=== PATIENT | male | born 1965 | race Caucasian/White ===

== ENCOUNTER 2019-08-15 09:07 | Emergency (ER) | payer MEDICAID, OTHER ==
[~2019-08-15] VITALS: Ht 175.3 cm; Wt 101.8 kg
[2019-08-15] MEDS ORDERED: ketorolac tromethamine 15mg/ml inj. IV ONE (09:35)
[2019-08-15] MEDS ORDERED: cloNIDine 0.1 mg tablet PO ONE (09:35)
--- NOTE | 2019-08-15 10:02 | NUR ---
BREAKING PRIMARY RN, LAB AND ANOTHER RN AT BEDSIDE, STARTING A LINE AND COLLECTING LABS
[2019-08-15 10:14] LABS: BASOPHILS # (AUTO) 0.1 X10'3 (0-0.2); BASOPHILS % (AUTO) 0.8 % (0-1); EOSINOPHILS # (AUTO) 0.2 X10'3 (0-0.9); EOSINOPHILS % (AUTO) 2.1 % (0-6); HEMATOCRIT 52.1 % (42.0-52.0); HEMOGLOBIN 17.3 g/dl (14.0-17.9); LYMPHOCYTES # (AUTO) 1.7 X10'3 (1.1-4.8); LYMPHOCYTES % (AUTO) 17.7 % (21-51); MEAN CORPUSCULAR HEMOGLOBIN 30.8 PG (27.0-31.0); MEAN CORPUSCULAR HGB CONC 33.3 g/dL (33.0-36.5); MEAN CORPUSCULAR VOLUME 92.7 FL (78-98); MEAN PLATELET VOLUME 8.3 FL (7.4-10.4); MONOCYTES # (AUTO) 1.3 X10'3 (0-0.9); MONOCYTES % (AUTO) 13.4 % (2-12); NEUTROPHILS # (AUTO) 6.3 X10'3 (1.8-7.7); PLATELET COUNT 209 X10'3 (140-440); RED BLOOD COUNT 5.62 X10'6 (4.70-6.10); RED CELL DISTRIBUTION WIDTH 15.2 % (11.5-14.5); WHITE BLOOD COUNT 9.5 X10'3 (4.5-11.0)
[2019-08-15] MEDS ORDERED: acetaminophen w/codeine (30MG) #3 tablet PO ONE (10:20)
[2019-08-15] MEDS ORDERED: normal saline 1000ML IV soln IVB ONE (10:20)
[2019-08-15 10:26] LABS: ALANINE AMINOTRANSFERASE 20 U/L (12-78); ALBUMIN 2.9 G/DL (3.4-5.0); ALBUMIN/GLOBULIN RATIO 0.6 (1.1-1.5); ALKALINE PHOSPHATASE 108 IU/L (46-116); ANION GAP 8 (8-16); ASPARTATE AMINO TRANSFERASE 27 U/L (10-37); BILIRUBIN,TOTAL 0.8 MG/DL (0.1-1.0); BLOOD UREA NITROGEN 11 MG/DL (7-18); BUN/CREATININE RATIO 8.2 (5.4-32.0); CALCIUM 8.7 MG/DL (8.5-10.1); CHLORIDE 107 MMOL/L (99-107); CREATININE 1.34 MG/DL (0.60-1.10); GLUCOSE 89 MG/DL (70-104); MAGNESIUM 1.6 MG/DL (1.5-2.4); POTASSIUM 3.5 MMOL/L (3.5-5.1); SODIUM 140 MMOL/L (135-145); TOTAL CARBON DIOXIDE 25.5 MMOL/L (24-32); TOTAL PROTEIN 7.6 G/DL (6.4-8.2); eGFR 67 ML/MIN
[2019-08-15] MEDS ORDERED: HYDROchlorothiazide 25mg tablet PO ONE (10:30)
[2019-08-15] MEDS ORDERED: CefTRIAXone/D5W-Rocephin 1gm 50 ML IV ONE (11:05)
[2019-08-15] MEDS ORDERED: azithromycin 250mg tablet PO ONE (11:05)
[2019-08-15] MEDS ORDERED: AZIT-63 PO (11:06)
[2019-08-15] MEDS ORDERED: IBUP-1984 PO (11:06)
[2019-08-15] MEDS ORDERED: ACET-3068 PO (11:06)
[2019-08-15 12:09] VITALS: BP 160/105
== END 2019-08-15 12:15 | disposition home or self-care (01) ==
LOC: ER 09:08
DX: I10 Essential (primary) hypertension (principal); J18.9 Pneumonia, unspecified organism; R60.0 Localized edema; Z87.891 Personal history of nicotine dependence; Z79.899 Other long term (current) drug therapy
CPT/HCPCS: 36415; 71046; 80053; 83735; 84484; 85025; 87502; 87503; 93005; 96365; 96375; 99285; J0696; J1885; J7030

== ENCOUNTER 2024-06-20 14:50 | Inpatient (IN) | payer MEDICAID ==
[2024-06-20] VITALS (7 sets, daily range): PULSE 68–82; RESP 16–20; O2SAT 95–100
[~2024-06-20] VITALS: Ht 175.3 cm; Wt 120.0 kg
[~2024-06-20 14:50] MED LIST: etomidate 2mg/ml inj. ONE
[2024-06-20] MEDS: ipratropium/albuterol 3ml nebule NEB ONE (16:37)
[2024-06-20 16:57] LABS: BASOPHILS % (AUTO) 0.4 % (0-1); EOSINOPHILS # (AUTO) 0.1 X10'3 (0-0.9); EOSINOPHILS % (AUTO) 0.9 % (0-6); LYMPHOCYTES # (AUTO) 0.6 X10'3 (1.1-4.8); LYMPHOCYTES % (AUTO) 5.6 % (21-51); MEAN PLATELET VOLUME 9.5 FL (7.4-10.4); MONOCYTES # (AUTO) 1.4 X10'3 (0-0.9); MONOCYTES % (AUTO) 12.4 % (2-12); NEUTROPHILS # (AUTO) 9.2 X10'3 (1.8-7.7); NEUTROPHILS % (AUTO) 80.7 % (42-75); PLATELET COUNT 119 X10'3 (140-440); WHITE BLOOD COUNT 11.5 X10'3 (4.5-11.0)
[2024-06-20 17:12] LABS: ALANINE AMINOTRANSFERASE 37 U/L (12-78); ALBUMIN 3.1 G/DL (3.4-5.0); ALBUMIN/GLOBULIN RATIO 0.6 (1.1-1.5); ALKALINE PHOSPHATASE 179 IU/L (46-116); ANION GAP 4 (8-16); ASPARTATE AMINO TRANSFERASE 29 U/L (10-37); BILIRUBIN,TOTAL 1.6 MG/DL (0.1-1.0); BLOOD UREA NITROGEN 60 MG/DL (7-18); BUN/CREATININE RATIO 23.3 (10.0-20.0); CALCIUM 8.6 MG/DL (8.5-10.1); CHLORIDE 98 MMOL/L (99-107); CREATININE 2.57 MG/DL (0.60-1.10); POTASSIUM 4.9 MMOL/L (3.5-5.1); SODIUM 138 MMOL/L (135-145); TOTAL CARBON DIOXIDE 36.1 MMOL/L (24-32); TOTAL PROTEIN 8.6 G/DL (6.4-8.2); eCRCL 31 ML/MIN; eGFR 26 ML/MIN
[2024-06-20 17:21] LABS: PRO BRAIN NATRIURETIC PEPTIDE 12237 PG/ML (0-125)
[2024-06-20 17:25] LABS: HEMOGLOBIN 13.5 g/dl (14.0-17.9); MEAN CORPUSCULAR HEMOGLOBIN 30.9 PG (27.0-31.0); MEAN CORPUSCULAR HGB CONC 32.1 g/dL (33.0-36.5); MEAN CORPUSCULAR VOLUME 96.3 FL (78-98); RED BLOOD COUNT 4.36 X10'6 (4.70-6.10); RED CELL DISTRIBUTION WIDTH 17.2 % (11.5-14.5)
[2024-06-20 17:39] LABS: GLUCOSE 101 MG/DL (70-104)
[2024-06-20] MEDS: furosemide 40mg/4ml inj IV ONE ×2 (17:50)
[2024-06-20] MEDS: cefTAZidime 1 GM/NS 100ML IVPB 100 ML IV STA (17:50)
[2024-06-20] MEDS: azithromycin/NS 500mg/250ml 250 ML IV ONE (17:51)
[2024-06-20 18:18] LABS: ANISOCYTOSIS 2+; PLATELET ESTIMATE DECREASED
[2024-06-20] MEDS: LidoCAINE 2% Topical Jelly 11mL syringe (UROJET) TOP ONE (18:20)
[2024-06-20 18:59] LABS: ABG BASE EXCESS 1.1 mmol/L (-2.0-3.0); ABG HCO3 32.9 mmol/L (21.0-28.0); ABG OXYGEN SATURATION 94.5 % (94.0-98.0); ABG PCO2 (T) 89.4 mmHg (35.0-48.0); ABG PO2 (T) 74.9 mmHg (83.0-108.0); ALLEN'S TEST Modified; FCOHb 0.8 % (0.5-1.5); FHHb 5.4 % (0.0-5.0); FLOW 5 L/min; FMetHb 0.2 % (0.0-1.5); FO2Hb 93.6 % (94.0-98.0); MODE NASAL CANNULA; PATIENT TEMPERATURE 36.2; TOTAL HEMOGLOBIN 14.9 G/dl (13.5-17.5)
[2024-06-20] MEDS: albuterol 2.5 MG/3 ML nebule CONTNEB PRN (19:14)
[2024-06-20 19:18] LABS: BILIRUBIN,URINE NEGATIVE (Neg); CLARITY,URINE CLEAR (Clear); COLOR,URINE YELLOW (Yellow); GLUCOSE, URINE NEGATIVE (Neg); KETONES,URINE NEGATIVE (Neg); LEUKOCYTE ESTERASE ,URINE NEGATIVE (Neg); NITRITES, URINE NEGATIVE (Neg); OCCULT BLOOD,URINE NEGATIVE (Neg); PH,URINE 5.5 (4.8-8.0); PROTEIN,URINE 30 mg/dl (Neg); UROBILINOGEN,URINE 0.2 E.U/dL (0.2-1.0)
[2024-06-20 19:23] LABS: UA COLLECTION TYPE URINAL
[2024-06-20 19:24] LABS: BACTERIA,URINE 1+ /HPF (Neg); HYALINE CASTS 0-3 /LPF (NEGATIVE); MUCUS STRANDS FEW /LPF (Neg); RBC,URINE 0-2 /HPF (0-2); SQUAMOUS EPITHELIAL CELL,UR FEW /LPF (FEW); WBC,URINE 0-4 /HPF (0-4)
[2024-06-20 19:47] LABS: URINE AMPHETAMINE SCREEN POSITIVE (Neg); URINE BARBITUATE SCREEN NEGATIVE (Neg); URINE BENZODIAZEPINES SCREEN NEGATIVE (Neg); URINE CANNABINOID SCREEN NEGATIVE (Neg); URINE COCAINE SCREEN NEGATIVE (Neg); URINE METHADONE SCREEN NEGATIVE (Neg); URINE OPIATE SCREEN NEGATIVE (Neg); URINE PHENCYCLIDINE SCREEN NEGATIVE (Neg)
[2024-06-20 21:05] LABS: ABG HCO3 36.5 mmol/L (21.0-28.0); ABG OXYGEN SATURATION 95.5 % (94.0-98.0); ABG PCO2 (T) 90.5 mmHg (35.0-48.0); ABG PH (T) 7.222 (7.350-7.450); ABG PO2 (T) 80.9 mmHg (83.0-108.0); ALLEN'S TEST POSITIVE; FCOHb 1.1 % (0.5-1.5); FHHb 4.4 % (0.0-5.0); FMetHb 0.2 % (0.0-1.5); FO2Hb 94.3 % (94.0-98.0); PATIENT TEMPERATURE 36.7; TOTAL HEMOGLOBIN 15.1 G/dl (13.5-17.5)
[2024-06-20] MEDS: succinylcholine 20mg/ml inj IV ONE (21:41)
[2024-06-20 22:05] LABS: TRIGLYCERIDES 55 MG/DL (20-135)
[2024-06-20] MEDS: propofol 1000mg/100ml bottle 100 ML IV PRN (22:11)
[2024-06-20] MEDS: FENTANYL-0.9 % NACL/PF 100 ML IV PRN (22:12)
[2024-06-20 22:19] LABS: ABG BASE EXCESS 3.5 mmol/L (-2.0-3.0); ABG HCO3 33.4 mmol/L (21.0-28.0); ABG OXYGEN SATURATION 90.7 % (94.0-98.0); ABG PCO2 (T) 74.7 mmHg (35.0-48.0); ABG PH (T) 7.266 (7.350-7.450); ABG PO2 (T) 56.2 mmHg (83.0-108.0); ALLEN'S TEST Modified; FHHb 9.2 % (0.0-5.0); FMetHb 0.2 % (0.0-1.5); FO2Hb 89.6 % (94.0-98.0); MODE VENT - prvc; PATIENT TEMPERATURE 36.7; PEEP 5 cm H2O; RESPIRATORY RATE 18 b/min; TIDAL VOLUME 450 mL; TOTAL HEMOGLOBIN 15.2 G/dl (13.5-17.5)
[2024-06-21] VITALS (14 sets, daily range): BP systolic 134–166; BP diastolic 65–100; PULSE 70–90; RESP 11–20; TEMP 97.4; O2SAT 95–100
[2024-06-21 04:23] LABS: ABG HCO3 33.8 mmol/L (21.0-28.0); ABG PCO2 (T) 41.6 mmHg (35.0-48.0); ABG PH (T) 7.527 (7.350-7.450); ABG PO2 (T) 71.3 mmHg (83.0-108.0); ALLEN'S TEST POSITIVE; FCOHb 1.1 % (0.5-1.5); FMetHb 0.3 % (0.0-1.5); FO2Hb 95.6 % (94.0-98.0); MODE VENT - AC PRVC; PATIENT TEMPERATURE 36.9; PEEP 5 cm H2O; RESPIRATORY RATE 18 b/min; TIDAL VOLUME 450 mL; TOTAL HEMOGLOBIN 13.5 G/dl (13.5-17.5)
[2024-06-21] MEDS ORDERED: magnesium hydroxide 30ml (MOM) UD suspension PO PRN ×2 (07:55→15:55)
[2024-06-21] MEDS ORDERED: acetaminophen 325mg tablet PO PRN ×4 (07:55→15:55)
[2024-06-21] MEDS ORDERED: morphine 2 MG/ML inj. syringe IV PRN ×3 (07:55→15:55)
[2024-06-21] MEDS ORDERED: morphine 4 MG/ML inj SYRINge IV PRN (07:55)
[2024-06-21] MEDS ORDERED: ondansetron/PF 4mg/2ml inj IV PRN ×2 (07:55→15:55)
[2024-06-21] MEDS: PERFLUTREN PROTEIN-A MICROSPHR (Optison) 0.22 MG/ML 3ML VIAL IV ONE (08:13)
[2024-06-21 08:17] LABS: BASOPHILS # (AUTO) 0.1 X10'3 (0-0.2); BASOPHILS % (AUTO) 0.5 % (0-1); EOSINOPHILS # (AUTO) 0.2 X10'3 (0-0.9); EOSINOPHILS % (AUTO) 1.4 % (0-6); HEMATOCRIT 39.4 % (42.0-52.0); HEMOGLOBIN 12.5 g/dl (14.0-17.9); LYMPHOCYTES # (AUTO) 0.6 X10'3 (1.1-4.8); LYMPHOCYTES % (AUTO) 5.1 % (21-51); MEAN CORPUSCULAR HGB CONC 31.8 g/dL (33.0-36.5); MEAN CORPUSCULAR VOLUME 94.4 FL (78-98); MEAN PLATELET VOLUME 9.3 FL (7.4-10.4); MONOCYTES # (AUTO) 1.5 X10'3 (0-0.9); MONOCYTES % (AUTO) 13.6 % (2-12); NEUTROPHILS # (AUTO) 8.5 X10'3 (1.8-7.7); NEUTROPHILS % (AUTO) 79.4 % (42-75); PLATELET COUNT 109 X10'3 (140-440); RED BLOOD COUNT 4.17 X10'6 (4.70-6.10); RED CELL DISTRIBUTION WIDTH 17.6 % (11.5-14.5); WHITE BLOOD COUNT 10.8 X10'3 (4.5-11.0)
[2024-06-21] MEDS: furosemide 10 MG/1 ML 10ml inj IV ONE (08:42)
[2024-06-21] MEDS: heparin, porcine 5000 units/ml vial SQ SCH ×2 (08:43→22:05)
[2024-06-21 08:45] LABS: ALANINE AMINOTRANSFERASE 28 U/L (12-78); ALBUMIN 2.3 G/DL (3.4-5.0); ALBUMIN/GLOBULIN RATIO 0.5 (1.1-1.5); ALKALINE PHOSPHATASE 122 IU/L (46-116); ANION GAP 6 (8-16); ASPARTATE AMINO TRANSFERASE 22 U/L (10-37); BILIRUBIN,TOTAL 2.8 MG/DL (0.1-1.0); BLOOD UREA NITROGEN 62 MG/DL (7-18); BUN/CREATININE RATIO 25.8 (10.0-20.0); CALCIUM 8.4 MG/DL (8.5-10.1); CHLORIDE 100 MMOL/L (99-107); GLUCOSE 74 MG/DL (70-104); LIPASE 59 U/L (16-77); PHOSPHORUS 2.3 MG/DL (2.3-4.5); POTASSIUM 4.6 MMOL/L (3.5-5.1); SODIUM 141 MMOL/L (135-145); THYROID STIMULATING HORMONE 0.83 ulU/ml (0.34-4.50); TOTAL PROTEIN 6.6 G/DL (6.4-8.2); eCRCL 34 ML/MIN; eGFR 34 ML/MIN
[2024-06-21 08:48] LABS: INR 1.4 INR
[2024-06-21] MEDS: LORazepam 2 mg/ml vial IV ONE (15:40)
[2024-06-21] MEDS ORDERED: HYDROcodone/acetaminophen 5mg/325mg tablet PO PRN (15:55)
[2024-06-21] MEDS ORDERED: magnesium sulf-water 2g/50mL 50 ML IV PRN (15:55)
[2024-06-21] MEDS ORDERED: albuterol 2.5 MG/3 ML nebule NEB PRN (15:55)
[2024-06-21] MEDS ORDERED: potassium Cl 20 mEq SR tablet PO PRN ×2 (15:55)
[2024-06-21] MEDS ORDERED: HYDROcodone/acetaminophen 10/325mg tab PO PRN (15:55)
[2024-06-21] MEDS ORDERED: potassium Cl 40MEQ/1/2NS 520ml 520 ML IV PRN (15:55)
[2024-06-21] MEDS ORDERED: magnesium sulf-water 4G/100mL 100 ML IV PRN (15:55)
[2024-06-21] MEDS ORDERED: mag hydrox/Alum hydrox/simeth 30ml oral suspension PO PRN (15:55)
[2024-06-21] MEDS: azithromycin/NS 500mg/250ml 250 ML IV ONE (16:49)
[2024-06-21] MEDS: methylPREDNISolone sod succ 125mg/2ml vial IV ONE (16:50)
[2024-06-21] MEDS: CefTRIAXone 2gm/D5W 50ml BAG 50 ML IV ONE (16:50)
[2024-06-21] MEDS: ipratropium/albuterol 3ml nebule NEB SCH (17:00)
[2024-06-21] MEDS: furosemide 40mg/4ml inj IV ONE (17:12)
[2024-06-21] MEDS: metoprolol succinate 25mg (24-HOUR) SR. Tablet PO ONE (17:15)
[2024-06-21] MEDS: K and/or MAG REPLACEMENT MC SCH (20:08)
[2024-06-21] MEDS: furosemide 40mg/4ml inj IV SCH (20:09)
[2024-06-21] MEDS: docusate sod 100mg capsule PO SCH (20:09)
[2024-06-21] MEDS: methylPREDNISolone sod succ 125mg/2ml vial IV SCH (20:11)
[2024-06-22] VITALS (19 sets, daily range): BP systolic 115–150; BP diastolic 71–96; PULSE 72–95; RESP 10–20; TEMP 97.6–98.2; O2SAT 93–99
[2024-06-22 07:21] LABS: BASOPHILS % (AUTO) 0.2 % (0-1); EOSINOPHILS % (AUTO) 0 % (0-6); HEMATOCRIT 42.3 % (42.0-52.0); HEMOGLOBIN 13.3 g/dl (14.0-17.9); LYMPHOCYTES # (AUTO) 0.5 X10'3 (1.1-4.8); LYMPHOCYTES % (AUTO) 4.9 % (21-51); MEAN CORPUSCULAR HEMOGLOBIN 30.2 PG (27.0-31.0); MEAN CORPUSCULAR HGB CONC 31.5 g/dL (33.0-36.5); MEAN CORPUSCULAR VOLUME 95.9 FL (78-98); MEAN PLATELET VOLUME 9.7 FL (7.4-10.4); MONOCYTES # (AUTO) 0.1 X10'3 (0-0.9); MONOCYTES % (AUTO) 1.1 % (2-12); NEUTROPHILS # (AUTO) 9.5 X10'3 (1.8-7.7); NEUTROPHILS % (AUTO) 93.8 % (42-75); PLATELET COUNT 127 X10'3 (140-440); RED BLOOD COUNT 4.41 X10'6 (4.70-6.10); RED CELL DISTRIBUTION WIDTH 17.9 % (11.5-14.5); WHITE BLOOD COUNT 10.2 X10'3 (4.5-11.0)
[2024-06-22 07:46] LABS: ALANINE AMINOTRANSFERASE 32 U/L (12-78); ALBUMIN 2.5 G/DL (3.4-5.0); ALBUMIN/GLOBULIN RATIO 0.5 (1.1-1.5); ALKALINE PHOSPHATASE 144 IU/L (46-116); ANION GAP 7 (8-16); ASPARTATE AMINO TRANSFERASE 21 U/L (10-37); BILIRUBIN,TOTAL 1.2 MG/DL (0.1-1.0); BLOOD UREA NITROGEN 65 MG/DL (7-18); CALCIUM 8.2 MG/DL (8.5-10.1); CHLORIDE 95 MMOL/L (99-107); GLUCOSE 179 MG/DL (70-104); MAGNESIUM 2.4 MG/DL (1.5-2.4); POTASSIUM 4.7 MMOL/L (3.5-5.1); SODIUM 138 MMOL/L (135-145); TOTAL CARBON DIOXIDE 36.3 MMOL/L (24-32); eCRCL 32 ML/MIN; eGFR 32 ML/MIN
[2024-06-22 07:54] LABS: INR 1.3 INR; PROTHROMBIN TIME 12.9 SECONDS (9.0-12.0)
[2024-06-22] MEDS: metoprolol succinate 25mg (24-HOUR) SR. Tablet PO SCH (08:42)
[2024-06-22 10:17] LABS: PRO BRAIN NATRIURETIC PEPTIDE 9742 PG/ML (0-125)
[2024-06-22] MEDS: CefTRIAXone 2gm/D5W 50ml BAG 50 ML IV SCH (11:10)
[2024-06-22] MEDS: azithromycin/NS 500mg/250ml 250 ML IV SCH (11:11)
[2024-06-22] MEDS: acetaZOLAMIDE IV 500mg inj IV ONE (11:15)
[2024-06-22] MEDS: amLODIPine 5mg tablet PO ONE (20:37)
[2024-06-23] VITALS (8 sets, daily range): BP systolic 124–139; BP diastolic 78–93; PULSE 84–94; RESP 14–20; TEMP 97.8–98.6; O2SAT 94–100
[2024-06-23 06:59] LABS: BASOPHILS % (AUTO) 0 % (0-1); EOSINOPHILS % (AUTO) 0 % (0-6); HEMATOCRIT 39.6 % (42.0-52.0); HEMOGLOBIN 12.4 g/dl (14.0-17.9); LYMPHOCYTES # (AUTO) 0.5 X10'3 (1.1-4.8); LYMPHOCYTES % (AUTO) 2.9 % (21-51); MEAN CORPUSCULAR HEMOGLOBIN 30.1 PG (27.0-31.0); MEAN CORPUSCULAR HGB CONC 31.4 g/dL (33.0-36.5); MEAN CORPUSCULAR VOLUME 95.9 FL (78-98); MEAN PLATELET VOLUME 9.5 FL (7.4-10.4); MONOCYTES # (AUTO) 0.5 X10'3 (0-0.9); MONOCYTES % (AUTO) 2.9 % (2-12); NEUTROPHILS # (AUTO) 16.8 X10'3 (1.8-7.7); NEUTROPHILS % (AUTO) 94.2 % (42-75); PLATELET COUNT 136 X10'3 (140-440); RED BLOOD COUNT 4.13 X10'6 (4.70-6.10); RED CELL DISTRIBUTION WIDTH 17.7 % (11.5-14.5); WHITE BLOOD COUNT 17.8 X10'3 (4.5-11.0)
[2024-06-23 07:09] LABS: INR 1.2 INR; PROTHROMBIN TIME 12.8 SECONDS (9.0-12.0)
[2024-06-23 07:22] LABS: ALANINE AMINOTRANSFERASE 32 U/L (12-78); ALBUMIN 2.7 G/DL (3.4-5.0); ALBUMIN/GLOBULIN RATIO 0.5 (1.1-1.5); ALKALINE PHOSPHATASE 149 IU/L (46-116); ANION GAP 5 (8-16); ASPARTATE AMINO TRANSFERASE 24 U/L (10-37); BILIRUBIN,TOTAL 0.7 MG/DL (0.1-1.0); BLOOD UREA NITROGEN 72 MG/DL (7-18); BUN/CREATININE RATIO 31.6 (10.0-20.0); CALCIUM 8.3 MG/DL (8.5-10.1); CHLORIDE 96 MMOL/L (99-107); CREATININE 2.28 MG/DL (0.60-1.10); GLUCOSE 141 MG/DL (70-104); MAGNESIUM 2.3 MG/DL (1.5-2.4); PHOSPHORUS 3.9 MG/DL (2.3-4.5); POTASSIUM 4.1 MMOL/L (3.5-5.1); SODIUM 139 MMOL/L (135-145); TOTAL PROTEIN 7.9 G/DL (6.4-8.2); TRIGLYCERIDES 55 MG/DL (20-135); eCRCL 35 ML/MIN; eGFR 36 ML/MIN
[2024-06-23 08:23] LABS: CHOL/HDL RATIO 2.5 (0.00-4.99); CHOLESTEROL 127 MG/DL (0-200); HDL CHOLESTEROL 51 MG/DL (35-60); LDL CHOLESTEROL 69 MG/DL (50-100)
[2024-06-23] MEDS: amLODIPine 5mg tablet PO SCH (09:20)
[2024-06-23] MEDS: aspirin 81mg, enteric-coated 1 TAB TABLET.DR PO SCH (09:46)
[2024-06-23] MEDS ORDERED: FLUT1DIS4 INH (09:55)
[2024-06-23] MEDS ORDERED: SPIR25TA5 PO (09:55)
[2024-06-23] MEDS ORDERED: METO-395 PO (09:55)
[2024-06-23] MEDS ORDERED: PRED10TA23 PO (09:55)
[2024-06-23] MEDS ORDERED: ASPI-1071 PO (09:55)
[2024-06-23] MEDS ORDERED: ALBU90AE INH (09:55)
[2024-06-23] MEDS ORDERED: NOR5T PO (09:55)
[2024-06-23] MEDS ORDERED: LEVO750T68 PO (09:55)
[2024-06-23] MEDS ORDERED: FURO-150 PO (09:55)
[2024-06-23] MEDS: acetaZOLAMIDE IV 500mg inj IV ONE (10:30)
[2024-06-24] MEDS ORDERED: acetaZOLAMIDE IV 500mg inj IV SCH (08:00)
== END 2024-06-23 13:15 | disposition home or self-care (01) | DRG 720 ==
LOC: ER 14:51 → ED HOLD 19:49 → UNDOADMIN 19:49 → ED HOLD 06-21 16:03 → PCU 3S 06-21 20:45
PROVIDERS: ADMIT Surgery; ATTEND Surgery
PROC: 0BH17EZ Insertion of Endotracheal Airway into Trachea, Via Natural or Artificial Opening (ICD-10-PCS; principal; 2024-06-21)
PROC: 5A1935Z Respiratory Ventilation, Less than 24 Consecutive Hours (ICD-10-PCS; 2024-06-21)
DX: A41.9 Sepsis, unspecified organism (principal); J96.01 Acute respiratory failure with hypoxia; I50.33 Acute on chronic diastolic (congestive) heart failure; N17.9 Acute kidney failure, unspecified; J18.9 Pneumonia, unspecified organism; E87.29 Other acidosis; J44.0 Chronic obstructive pulmonary disease with (acute) lower respiratory infection; I11.0 Hypertensive heart disease with heart failure; Z20.822 Contact with and (suspected) exposure to COVID-19; J44.1 Chronic obstructive pulmonary disease with (acute) exacerbation; J96.02 Acute respiratory failure with hypercapnia; F15.10 Other stimulant abuse, uncomplicated; Z87.891 Personal history of nicotine dependence; Z88.8 Allergy status to other drugs, medicaments and biological substances
CPT/HCPCS: 36415; 36600; 71045; 71250; 74018; 80048; 80053; 80061; 80076; 80305; 81001; 82803; 83605; 83690; 83735; 83880; 84100; 84145; 84443; 84478; 84484; 85008; 85018; 85025; 85610; 87040; 87070; 87502; 87503; 87811; 93005; 93306; 94002; 94003; 94640; 94760; 96365; 96368; 96375; 97116; 97161; 97530; 99285; A4314; A4620; A7015; C1758; G0378; J0456; J0696; J0713; J1120; J1644; J1940; J2704; J2919; J3010; J3490; J7030; J7040

== ENCOUNTER 2024-06-30 00:40 | Inpatient (IN) | payer MEDICAID ==
[2024-06-30] VITALS (12 sets, daily range): BP systolic 127–158; BP diastolic 87–100; PULSE 91–112; RESP 10–21; TEMP 97.5–97.6; O2SAT 86–100
[~2024-06-30] VITALS: Ht 172.7 cm; Wt 103.5 kg
[~2024-06-30 00:40] MED LIST changes: +ALBU90AE INH; +ASPI-1071 PO; +FLUT1DIS4 INH; +FURO-150 PO; +METO-395 PO; +NOR5T PO; +PRED10TA23 PO; +SPIR25TA5 PO; -etomidate 2mg/ml inj. ONE
[2024-06-30] MEDS: furosemide 10 MG/1 ML 10ml inj IV ONE (01:01)
[2024-06-30] MEDS ORDERED: pantoprazole 40mg IV 80 MG in normal saline 100ml IV soln 100 ML IV ONE (02:00)
[2024-06-30 02:16] LABS: BASOPHILS % (AUTO) 0.1 % (0-1); EOSINOPHILS % (AUTO) 0 % (0-6); HEMATOCRIT 32.7 % (42.0-52.0); HEMOGLOBIN 10.3 g/dl (14.0-17.9); MEAN PLATELET VOLUME 9.2 FL (7.4-10.4); MONOCYTES # (AUTO) 1.8 X10'3 (0-0.9); WHITE BLOOD COUNT 18.2 X10'3 (4.5-11.0)
[2024-06-30 02:18] LABS: LYMPHOCYTES # (AUTO) 1.1 X10'3 (1.1-4.8); MEAN CORPUSCULAR HEMOGLOBIN 30.3 PG (27.0-31.0); MEAN CORPUSCULAR HGB CONC 31.4 g/dL (33.0-36.5); MEAN CORPUSCULAR VOLUME 96.6 FL (78-98); MONOCYTES % (AUTO) 9.7 % (2-12); NEUTROPHILS # (AUTO) 15.3 X10'3 (1.8-7.7); NEUTROPHILS % (AUTO) 84.2 % (42-75); PLATELET COUNT 136 X10'3 (140-440); RED BLOOD COUNT 3.39 X10'6 (4.70-6.10); RED CELL DISTRIBUTION WIDTH 18.3 % (11.5-14.5)
[2024-06-30] MEDS: pantoprazole 40 MG vial IV ONE (02:22)
[2024-06-30 02:26] LABS: PROTHROMBIN TIME 19.6 SECONDS (9.0-12.0)
[2024-06-30] MEDS: pantoprazole 40MG/NS 100ML BAG 100 ML IV ONE (02:32)
[2024-06-30 02:43] LABS: ALANINE AMINOTRANSFERASE 780 U/L (12-78); ALBUMIN 2.2 G/DL (3.4-5.0); ALBUMIN/GLOBULIN RATIO 0.6 (1.1-1.5); ALKALINE PHOSPHATASE 104 IU/L (46-116); ANION GAP -1 (8-16); ASPARTATE AMINO TRANSFERASE 338 U/L (10-37); BLOOD UREA NITROGEN 95 MG/DL (7-18); BUN/CREATININE RATIO 39.4 (10.0-20.0); CALCIUM 7.6 MG/DL (8.5-10.1); CHLORIDE 100 MMOL/L (99-107); CREATININE 2.41 MG/DL (0.60-1.10); GLUCOSE 112 MG/DL (70-104); POTASSIUM 5.5 MMOL/L (3.5-5.1); PRO BRAIN NATRIURETIC PEPTIDE 22252 PG/ML (0-125); SODIUM 138 MMOL/L (135-145); TOTAL PROTEIN 6.1 G/DL (6.4-8.2); eCRCL 32 ML/MIN; eGFR 34 ML/MIN
[2024-06-30 02:51] LABS: NUCLEATED RED BLOOD CELLS 7 /100WBC (0-0); PLATELET ESTIMATE DECREASED; TOTAL CELLS COUNTED 100
[2024-06-30 02:52] LABS: ANISOCYTOSIS 2+; TARGET CELLS 1+
[2024-06-30] MEDS: normal saline 1000ML IV soln IVB ONE (05:12)
[2024-06-30] MEDS: cefTAZidime inj 2 GM in normal saline 100ml IV soln 100 ML IV ONE (05:13)
[2024-06-30 06:33] LABS: BASOPHILS # (AUTO) 0.1 X10'3 (0-0.2); HEMOGLOBIN 9.9 g/dl (14.0-17.9); LYMPHOCYTES # (AUTO) 1.3 X10'3 (1.1-4.8)
[2024-06-30 06:36] LABS: BASOPHILS % (AUTO) 0.3 % (0-1); EOSINOPHILS % (AUTO) 0 % (0-6); LYMPHOCYTES % (AUTO) 6.3 % (21-51); MEAN CORPUSCULAR HEMOGLOBIN 30.3 PG (27.0-31.0); MEAN CORPUSCULAR VOLUME 94.7 FL (78-98); MEAN PLATELET VOLUME 8.7 FL (7.4-10.4); MONOCYTES # (AUTO) 2.2 X10'3 (0-0.9); MONOCYTES % (AUTO) 10.5 % (2-12); NEUTROPHILS # (AUTO) 17.3 X10'3 (1.8-7.7); NEUTROPHILS % (AUTO) 82.9 % (42-75); PLATELET COUNT 136 X10'3 (140-440); RED BLOOD COUNT 3.27 X10'6 (4.70-6.10); WHITE BLOOD COUNT 20.9 X10'3 (4.5-11.0)
[2024-06-30 07:48] LABS: ABG BASE EXCESS 11.8 mmol/L (-2.0-3.0); ABG HCO3 40.7 mmol/L (21.0-28.0); ABG OXYGEN SATURATION 95.7 % (94.0-98.0); ABG PCO2 (T) 80.3 mmHg (35.0-48.0); ABG PH (T) 7.321 (7.350-7.450); ABG PO2 (T) 91.4 mmHg (83.0-108.0); ALLEN'S TEST POSITIVE; FCOHb 0.5 % (0.5-1.5); FHHb 4.3 % (0.0-5.0); FLOW 5 L/min; FMetHb 0.3 % (0.0-1.5); FO2Hb 94.9 % (94.0-98.0); MODE NASAL CANNULA; PATIENT TEMPERATURE 36.7; TOTAL HEMOGLOBIN 11.1 G/dl (13.5-17.5)
[2024-06-30] MEDS ORDERED: acetaminophen 325mg tablet PO PRN (09:25)
[2024-06-30] MEDS ORDERED: magnesium hydroxide 30ml (MOM) UD suspension PO PRN (09:25)
[2024-06-30] MEDS ORDERED: magnesium sulf-water 2g/50mL 50 ML IV PRN (09:25)
[2024-06-30] MEDS ORDERED: albuterol 2.5 MG/3 ML nebule NEB PRN (09:25)
[2024-06-30] MEDS ORDERED: potassium Cl 40MEQ/1/2NS 520ml 520 ML IV PRN (09:25)
[2024-06-30] MEDS ORDERED: ondansetron/PF 4mg/2ml inj IV PRN (09:25)
[2024-06-30] MEDS ORDERED: magnesium sulf-water 4G/100mL 100 ML IV PRN (09:25)
[2024-06-30] MEDS ORDERED: potassium Cl 20 mEq SR tablet PO PRN ×2 (09:25)
[2024-06-30 09:42] LABS: ETHANOL < 10 MG/DL (<10)
[2024-06-30] MEDS: normal saline 1000ml 1,000 ML IV SCH (09:48)
[2024-06-30 09:56] LABS: URINE AMPHETAMINE SCREEN POSITIVE (Neg); URINE BARBITUATE SCREEN NEGATIVE (Neg); URINE BENZODIAZEPINES SCREEN NEGATIVE (Neg); URINE CANNABINOID SCREEN NEGATIVE (Neg); URINE COCAINE SCREEN NEGATIVE (Neg); URINE METHADONE SCREEN NEGATIVE (Neg); URINE OPIATE SCREEN NEGATIVE (Neg); URINE PHENCYCLIDINE SCREEN NEGATIVE (Neg)
[2024-06-30] MEDS ORDERED: LIDOcaine 2% Viscous 15ml cup ONE (11:03)
[2024-06-30] MEDS ORDERED: simethicone 40mg/0.6ml oral drops 30ml ONE (11:31)
[2024-06-30] MEDS ORDERED: fentaNYL/PF 50MCG/1 ML 2ML syringe ONE ×2 (11:33→12:14)
[2024-06-30] MEDS ORDERED: MIDAZolam 1 MG/ML 5ML VIAL ONE ×2 (11:33→12:14)
[2024-06-30] MEDS: piperacillin/tazo 4.5gm/100ml 100 ML IV SCH (16:52)
[2024-06-30] MEDS: K and/or MAG REPLACEMENT MC SCH (20:00)
[2024-06-30] MEDS: budesonide 0.5mg/2ml UD nebule IH SCH (20:00)
[2024-06-30] MEDS ORDERED: haloperidol lactate 5mg/ml inj IM PRN (21:50)
[2024-06-30] MEDS ORDERED: LORazepam 1 MG tablet PO PRN (21:50)
[2024-06-30] MEDS ORDERED: LORazepam 2 mg/ml vial IV PRN (21:50)
[2024-06-30] MEDS: pantoprazole 40 MG vial IV SCH (23:15)
[2024-07-01] VITALS (9 sets, daily range): BP systolic 140–155; BP diastolic 89–91; PULSE 83–99; RESP 10–18; TEMP 97.3–97.8; O2SAT 96–99
[2024-07-01] MEDS: docusate sod 100mg capsule PO SCH (00:06)
[2024-07-01] MEDS: pantoprazole 40 MG vial IV ONE (00:11)
[2024-07-01] MEDS: HYDROmorphone inj. 0.5 MG/0.5 ML DISP.SYRIN IV PRN (00:34)
[2024-07-01 06:21] LABS: BASOPHILS # (AUTO) 0.1 X10'3 (0-0.2); EOSINOPHILS % (AUTO) 0.3 % (0-6); HEMOGLOBIN 9.7 g/dl (14.0-17.9); MEAN PLATELET VOLUME 7.9 FL (7.4-10.4); RED CELL DISTRIBUTION WIDTH 18.1 % (11.5-14.5); WHITE BLOOD COUNT 15.5 X10'3 (4.5-11.0)
[2024-07-01 06:23] LABS: BASOPHILS % (AUTO) 0.5 % (0-1); HEMATOCRIT 30.3 % (42.0-52.0); LYMPHOCYTES # (AUTO) 1.1 X10'3 (1.1-4.8); MEAN CORPUSCULAR VOLUME 96.8 FL (78-98); MONOCYTES # (AUTO) 1.6 X10'3 (0-0.9); MONOCYTES % (AUTO) 10.1 % (2-12); NEUTROPHILS # (AUTO) 12.7 X10'3 (1.8-7.7); NEUTROPHILS % (AUTO) 82.1 % (42-75); PLATELET COUNT 138 X10'3 (140-440); RED BLOOD COUNT 3.13 X10'6 (4.70-6.10)
[2024-07-01 06:49] LABS: INR 1.5 INR; PROTHROMBIN TIME 15.6 SECONDS (9.0-12.0)
[2024-07-01 07:06] LABS: ALANINE AMINOTRANSFERASE 558 U/L (12-78); ALBUMIN 2.4 G/DL (3.4-5.0); ALBUMIN/GLOBULIN RATIO 0.6 (1.1-1.5); ALKALINE PHOSPHATASE 96 IU/L (46-116); ANION GAP -1 (8-16); ASPARTATE AMINO TRANSFERASE 149 U/L (10-37); BILIRUBIN,TOTAL 2.1 MG/DL (0.1-1.0); BLOOD UREA NITROGEN 80 MG/DL (7-18); BUN/CREATININE RATIO 41.2 (10.0-20.0); CALCIUM 8.2 MG/DL (8.5-10.1); CHLORIDE 106 MMOL/L (99-107); CREATININE 1.94 MG/DL (0.60-1.10); GLUCOSE 93 MG/DL (70-104); LIPASE 89 U/L (16-77); MAGNESIUM 3.3 MG/DL (1.5-2.4); PHOSPHORUS 3.2 MG/DL (2.3-4.5); POTASSIUM 4.7 MMOL/L (3.5-5.1); SODIUM 144 MMOL/L (135-145); TOTAL CARBON DIOXIDE 38.6 MMOL/L (24-32); TOTAL PROTEIN 6.4 G/DL (6.4-8.2); eCRCL 40 ML/MIN; eGFR 43 ML/MIN
[2024-07-01] MEDS: ipratropium/albuterol 3ml nebule NEB PRN (07:56)
[2024-07-01] MEDS: furosemide 40mg/4ml inj IV SCH (08:29)
[2024-07-01] MEDS: thiamine 100mg tablet PO SCH (08:30)
[2024-07-01] MEDS: multivitamins, therapeutics tablet PO SCH (08:30)
[2024-07-01 10:09] LABS: NUCLEATED RED BLOOD CELLS 3 /100WBC (0-0); TOTAL CELLS COUNTED 100
[2024-07-01 10:10] LABS: ANISOCYTOSIS 2+; PLATELET ESTIMATE DECREASED; TARGET CELLS 1+
[2024-07-01 10:11] LABS: POLYCHROMASIA 2+
[2024-07-01] MEDS ORDERED: AMOX-580 PO (10:57)
[2024-07-01] MEDS ORDERED: BUDE10.26 INH (10:57)
[2024-07-01] MEDS ORDERED: PANT-47 PO (10:57)
[2024-07-01] MEDS ORDERED: FURO-149 PO (10:57)
[2024-07-01] MEDS: haloperidol 5mg tablet PO PRN (12:10)
[2024-07-02 07:09] LABS: HBSAG SCREEN Negative (Negative); HEP A AB, IGM Negative (Negative); HEP B CORE AB, IGM Negative (Negative); HEPATITIS C VIRUS ANTIBODY Non Reactive (Non Reactive)
[2024-07-04] MEDS ORDERED: AMOX-580 PO (00:16)
[2024-07-05] MEDS ORDERED: folic acid 1mg tablet PO SCH (08:00)
[2024-07-06] MEDS ORDERED: NOR5T PO (14:35)
[2024-07-06] MEDS ORDERED: FURO-150 PO (14:35)
[2024-07-06] MEDS ORDERED: PANT40TA54 PO (14:35)
== END 2024-07-01 18:30 | disposition home or self-care (01) | DRG 241 ==
LOC: ER 00:41 → ED HOLD 06:32 → PCU 3S 19:50
PROVIDERS: ADMIT Internal Medicine; ATTEND Internal Medicine
PROC: 0DB68ZX Excision of Stomach, Via Natural or Artificial Opening Endoscopic, Diagnostic (ICD-10-PCS; principal; 2024-06-30)
PROC: 0DB78ZX Excision of Stomach, Pylorus, Via Natural or Artificial Opening Endoscopic, Diagnostic (ICD-10-PCS; 2024-06-30)
PROC: 5A09357 Assistance with Respiratory Ventilation, Less than 24 Consecutive Hours, Continuous Positive Airway Pressure (ICD-10-PCS; 2024-06-30)
PROC: 5A09357 Assistance with Respiratory Ventilation, Less than 24 Consecutive Hours, Continuous Positive Airway Pressure (ICD-10-PCS; 2024-07-01)
DX: K25.4 Chronic or unspecified gastric ulcer with hemorrhage (principal); J69.0 Pneumonitis due to inhalation of food and vomit; I50.33 Acute on chronic diastolic (congestive) heart failure; J96.12 Chronic respiratory failure with hypercapnia; K21.01 Gastro-esophageal reflux disease with esophagitis, with bleeding; D68.9 Coagulation defect, unspecified; K76.1 Chronic passive congestion of liver; K29.71 Gastritis, unspecified, with bleeding; Z20.822 Contact with and (suspected) exposure to COVID-19; N18.4 Chronic kidney disease, stage 4 (severe); E87.5 Hyperkalemia; J44.9 Chronic obstructive pulmonary disease, unspecified; D62 Acute posthemorrhagic anemia; F15.90 Other stimulant use, unspecified, uncomplicated; I13.0 Hypertensive heart and chronic kidney disease with heart failure and stage 1 through stage 4 chronic kidney disease, or unspecified chronic kidney disease; M17.0 Bilateral primary osteoarthritis of knee; Z79.51 Long term (current) use of inhaled steroids; Z79.82 Long term (current) use of aspirin; Z79.899 Other long term (current) drug therapy; Z80.7 Family history of other malignant neoplasms of lymphoid, hematopoietic and related tissues
CPT/HCPCS: 36415; 36600; 43239; 71045; 74176; 80053; 80074; 80305; 80320; 82803; 83605; 83690; 83735; 83880; 84100; 84145; 84484; 85007; 85008; 85018; 85025; 85610; 86885; 86900; 86901; 87040; 87081; 87502; 87503; 87811; 93005; 94640; 94660; 94760; 99152; 99291; A4620; A6590; G0378; J0713; J1171; J1940; J2250; J2470; J2543; J3010; J7030; J7040

== ENCOUNTER 2024-07-17 16:32 | Emergency (ER) | payer MEDICAID ==
[~2024-07-17 16:32] MED LIST changes: +AMOX-580 PO; -ASPI-1071 PO; -METO-395 PO; +PANT40TA54 PO; -PRED10TA23 PO; +epiNEPHrine 0.1mg/ml 10ml syringe ONE
[2024-07-17 16:33] VITALS: PULSE 110; RESP 0; O2SAT 65
== END 2024-07-17 22:40 ==
LOC: MERGE 16:33 → ER 16:33 → EDBD 16:33 → ER 22:40
DX: I46.9 Cardiac arrest, cause unspecified (principal); I21.9 Acute myocardial infarction, unspecified; I50.9 Heart failure, unspecified; J44.9 Chronic obstructive pulmonary disease, unspecified; Z88.8 Allergy status to other drugs, medicaments and biological substances
CPT/HCPCS: 92950; 99285; J0171; J3490; 99283